=== PATIENT | female | born 1940 | race Caucasian/White ===

== ENCOUNTER → 2016-07-02 | Outpatient (CLI) | payer MEDICARE, BC ==
[~2016-07-02] MED LIST: ASPIRIN EC81 M1 PO; AZITHROMYCIN250 MG PO; CALTRATE 600+D PO; FIORICET1 TAB PO; FISH OIL 1,2001 EAC1 PO; FLONASE16 GM; GLUCOSAMINE DA1 EACH PO; HYZAAR PO; LETROZOLE2.5 MG PO; PRAVASTATIN SOD20 MG PO; TUMERIC PO
--- NOTE | ~2016-07-02 | CR172 ---
[facility] A Service of [facility] & [facility] RADIOLOGY TEXT RESULTS PATIENT: ALVA CASTLE LOCATION: [facility] : 41 UNIT #: [id number] AGE: [address]: Juliocesar Hudson MD SEX: F ORDER DR: [id number] [facility] [address] [place], [place] [address] [id number] O MR#: [id number] Acc #: [id number] NAME: ALVA CASTLE : 1940 SEX: F STUDY DATE/TIME: 07/02/2016 14:24 UNIT: [facility] ROOM: STUDY DESCRIPTION: CR Knee 3 Views Lt Attending Physician: Juliocesar Hudson M.D. Referring Physician: Juliocesar Hudson M.D. Ordering Physician: Juliocesar Hudson M.D. Primary Care Physician: Pranav Lobato M.D. MEDICAL IMAGING REPORT This report is preliminary unless electronic signature is present EXAM Left knee 3 views 07/02/2016 INDICATION 75-year-old female for preop evaluation of total left knee replacement. Shortness of air with activity. Breast cancer. Left knee pain. Pain symptoms today. TECHNIQUE 3 views left knee with weightbearing were performed. No comparisons. FINDINGS There is advanced degenerative change in the medial compartment with a bone on bone appearance. Osteophytic change is present in all 3 compartments with mild joint space narrowing in the patellofemoral compartment. There is a varus deformity of the left knee. There is spurring of the tibial spines. No distinct joint effusion. Osteophytic change is present in the patellofemoral compartment as well. IMPRESSION 1. Tricompartmental degenerative changes and varus deformity of the left knee. The degenerative change is most severe in the medial compartment. 2. Equivocal small joint effusion. Dictated by... Antonio Hernandez M.D. THIS IS AN ELECTRONICALLY VERIFIED REPORT Antonio Hernandez M.D. at 07/03/2016 4:45 PM KENDY/marybeth TD: 07/03/2016 08:07 [facility] A Service of [facility] & [facility] / [facility] RADIOLOGY TEXT RESULTS PATIENT: ALVA CASTLE LOCATION: [facility] : 41 UNIT #: [id number] AGE: [address]: Juliocesar Hudson MD SEX: F ORDER DR: JOB #: [id number] MEDICAL IMAGING REPORT Page 1 of 1 COPY
--- NOTE | ~2016-07-02 | CR63 ---
[facility] A Service of [facility] & [facility] RADIOLOGY TEXT RESULTS PATIENT: ALVA CASTLE LOCATION: [facility] : 41 UNIT #: [id number] AGE: [address]: Juliocesar Hudson MD SEX: F ORDER DR: [id number] [facility] [address] [place], [place] [address] [id number] O MR#: [id number] Acc #: [id number] NAME: ALVA CASTLE. : 1940 SEX: F STUDY DATE/TIME: 07/02/2016 14:24 UNIT: [facility] ROOM: STUDY DESCRIPTION: CR Chest 2 View Attending Physician: Juliocesar Hudson M.D. Referring Physician: Juliocesar Hudson M.D. Ordering Physician: Juliocesar Hudson M.D. Primary Care Physician: Pranav Lobato M.D. MEDICAL IMAGING REPORT This report is preliminary unless electronic signature is present EXAM Chest, 07/02/2016. [facility] HISTORY Preop left total knee arthroplasty. Osteoarthritis left knee. COMPARISON Chest 06/03/2012; CT chest, abdomen angio 03/06/2005. FINDINGS Two-view chest again demonstrates dextrocardia with known situs inversus. Heart size is slightly prominent but stable. Bilateral lungs are expanded and clear. IMPRESSION Stable negative chest with borderline stable cardiac enlargement. Congenital dextrocardia with situs inversus. Dictated by... Nicola Garcia M.D. THIS IS AN ELECTRONICALLY VERIFIED REPORT Nicola Garcia M.D. at 07/03/2016 8:10 AM ALIA/ritchie TD: 07/02/2016 21:37 JOB #: [id number] MEDICAL IMAGING REPORT Page 1 of 1 COPY
[2016-07-02 12:08] LABS: HEMATOCRIT 38.5 % (35.0-45.0); HEMOGLOBIN 12.3 gm/dL (12.0-16.0); MEAN CELL VOLUME 91.6 FL (83-96); MEAN CORPUSCULAR HEMOGLOBIN 29.3 PG (28-34); RED BLOOD COUNT 4.2 X10e (3.90-5.30); RED CELL DISTRIBUTION WIDTH 13.6 % (11.0-15.5); WHITE BLOOD COUNT 6.7 X10e3 (4.0-10.5)
[2016-07-02 12:10] LABS: URINE APPEARANCE CLEAR; URINE BILIRUBIN NEG (NEG); URINE BLOOD NEG (NEG); URINE COLOR YELLOW; URINE GLUCOSE NEG (NEG); URINE KETONE NEG (NEG); URINE LEUKOCYTE ESTERASE 1+ (NEG); URINE NITRATE NEG (NEG); URINE PH 5.5 (5-8); URINE PROTEIN NEG (NEG); URINE SPECIFIC GRAVITY 1.014 (1.003-1.035); URINE UROBILINOGEN 0.2 MG/DL (NEG)
[2016-07-02 12:12] LABS: CULTURE INDICATED? NO; URBCS1 AUWI 0-2 /[HPF] (0-2); URINE BACTERIA AUWI NEG (NEGATIVE); URINE SQUAMOUS EPITHELIAL CELL NONE SEEN /[HPF]
[2016-07-02 12:19] LABS: INR 1.1; PROTHROMBIN TIME (PATIENT) 11.4 SECONDS (9.6-11.5)
[2016-07-02 12:45] LABS: BUN/CREATININE RATIO 31.25; CREATININE SERUM 0.8 mg/dL (0.6-1.4); GLOM FILT RATE Estimated 72.7 mL/min (>60)
== END | disposition home or self-care (01) ==
LOC: CAMB 11:23
PROVIDERS: Orthopaedic Surgery
DX: Z01.818 Encounter for other preprocedural examination (principal); M17.12 Unilateral primary osteoarthritis, left knee; M21.162 Varus deformity, not elsewhere classified, left knee; I51.7 Cardiomegaly; Z88.0 Allergy status to penicillin
CPT/HCPCS: 36415; 71020; 73562; 80048; 81003; 85027; 85610; 86850; 86900; 86901; 87070

== ENCOUNTER → 2016-07-11 | Outpatient (CLI) | payer MEDICARE, BC ==
--- NOTE | ~2016-07-11 | MY11 ---
[facility] A Service of [facility] RADIOLOGY TEXT RESULTS PATIENT: ALVA CASTLE LOCATION: [facility] : 41 UNIT #: [id number] AGE: [address]: Armando Allison MD SEX: F ORDER DR: [id number] [place] [id number] [facility] [place], [place] [address] [id number] O MR#: [id number] Acc #: [id number] NAME: ALVA CASTLE. : 1940 SEX: F STUDY DATE/TIME: 07/11/2016 10:21 UNIT: [facility] ROOM: STUDY DESCRIPTION: MY Mammogram Screening Dig Davey Attending Physician: Armando Allison M.D. Referring Physician: Armando Allison M.D. Ordering Physician: Armando Allison M.D. Primary Care Physician: Pranav Lobato M.D. MEDICAL IMAGING REPORT This report is preliminary unless electronic signature is present EXAM Screening mammogram HISTORY A 75-year-old with personal and family history of breast cancer. No current complaints. FINDINGS Routine digital screening views of both breasts were obtained. The study is reviewed with an FDA approved CAD device. COMPARISON STUDIES 07/11/15, 04/07/14. FINDINGS Breast parenchyma shows a few scattered fibroglandular densities. No new masses or suspicious microcalcifications are seen. Benign lymph nodes in both axillary tails are stable. Left lumpectomy bed is also stable. IMPRESSION Benign mammogram. Followup in 1 year recommended. Patients over the age of 40 are entered into a reminder system with target due date for the next mammogram. A result letter will also be sent to the patient. BIRADS: 2 Benign Finding Dictated by... [facility] A Service [facility] RADIOLOGY TEXT RESULTS PATIENT: ALVA CASTLE LOCATION: [facility] : 41 UNIT #: [id number] AGE: [address]: Armando Allison MD SEX: F ORDER DR: Donta Joseph Jr., M.D. THIS IS AN ELECTRONICALLY VERIFIED REPORT Donta Joseph Jr., M.D. at 07/12/2016 6:08 AM CHRISTOPH/atif TD: 07/11/2016 13:58 JOB #: [id number] MEDICAL IMAGING REPORT Page 1 of 1 COPY
== END | disposition home or self-care (01) ==
LOC: CWCC 09:58
DX: Z12.31 Encounter for screening mammogram for malignant neoplasm of breast (principal); Z80.3 Family history of malignant neoplasm of breast
CPT/HCPCS: G0202

== ENCOUNTER 2016-07-16 06:53 | Inpatient (IN) | payer MEDICARE, BC ==
--- NOTE | ~2016-07-16 | CR169 ---
[facility] A Service of [facility] & [facility] RADIOLOGY TEXT RESULTS PATIENT: ALVA CASTLE LOCATION: [facility]- : 41 UNIT #: [id number] AGE: [address]: Juliocesar Hudson MD SEX: F ORDER DR: [id number] [facility] [address] [place], [place] [address] [id number] I MR#: [id number] Acc #: [id number] NAME: ALVA CASTLE. : 1940 SEX: F STUDY DATE/TIME: 07/16/2016 10:41 UNIT: [facility] ROOM: [facility] STUDY DESCRIPTION: CR Knee 2 Views Lt Attending Physician: Juliocesar Hudson M.D. Referring Physician: Juliocesar Hudson M.D. Ordering Physician: Juliocesar Hudson M.D. Primary Care Physician: Pranav Lobato M.D. MEDICAL IMAGING REPORT This report is preliminary unless electronic signature is present EXAM Left knee 2 views 07/16/2016 10:41 hours HISTORY Knee pain, postop total knee replacement today. COMPARISON 07/02/2016 FINDINGS AP and cross-table lateral views demonstrate interval total knee replacement with anatomic alignment. No fracture seen. IMPRESSION Interval total knee replacement with anatomic alignment. No fracture. No surgical drains seen. Dictated by... Estephanie Wellington M.D. THIS IS AN ELECTRONICALLY VERIFIED REPORT Estephanie Wellington M.D. at 07/17/2016 9:30 AM Phoebe TD: 07/16/2016 15:03 JOB #: [id number] MEDICAL IMAGING REPORT Page 1 of 1 COPY
--- NOTE | ~2016-07-16 | DS ---
Unit #: [id number] #: [id number] Patient: ALVA CASTLE [id number] [address] [place], [place] [address] [id number] I MR#: [id number] NAME: ALVA CASTLE. ROOM: [facility] Age: 75 Sex: F Admission Date: 07/16/2016 : 1940 Discharge Date: 07/19/2016 Attending Physician: Juliocesar Hudson M.D. Referring Physician: Juliocesar Hudson M.D. Primary Care Physician: Pranav Lobato M.D. DISCHARGE SUMMARY DISCHARGE DIAGNOSIS Left knee osteoarthritis, status post total knee arthroplasty. DISCHARGE MEDICATIONS Patient will start all of her home medications in addition to: 1. Faber 10/325 mg 1/2-1 tablet p.o. q.3 hours p.r.n. pain. 2. She will also be changed from aspirin 81 mg to aspirin 325 mg p.o. every day for 6 weeks. 3. She will also be on Senokot S. 4. She will hold her tumeric and fish oil. DETAILS OF HOSPITAL STAY Patient had a total knee arthroplasty that was uneventful on 07/16/2016. She did well with physical therapy. Labs and vital signs are stable. On 07/19/2016, she was stable for discharge. DISPOSITION Signature Bells. DISCHARGE INSTRUCTIONS 1. Patient will continue physical therapy. She will use a walker and can transition to a cane when tolerated. 2. She will ice and elevate the knee. 3. She will take aspirin daily, full dose, for 6 weeks for DVT prophylaxis. 4. She can remove the dressing after 7 days or leave on until she follows up in the office. 5. Call the office with any questions or concerns regarding her care. Dictated by... Juliocesar Hudson M.D. KEO/tommy TD: 07/19/2016 08:50 JOB #: [id number] Unit #: [id number] #: [id number] Patient: ALVA CASTLE DISCHARGE SUMMARY Page 1 of 1 X X DISCHARGE SUMMARY
--- NOTE | ~2016-07-16 | OR ---
Unit #: [id number] #: [id number] Patient: ALVA COSME [id number] [address] [address] [id number] I MR#: [id number] NAME: ALVA COSME. ROOM: [facility] Date of Procedure: 07/16/2016 Admission Date: 07/16/2016 Surgeon: Juliocesar Hudson M.D. : 1940 Attending Physician: Juliocesar Hudson M.D. Referring Physician: Juliocesar Hudson M.D. Primary Care Physician: Pranav Lobato M.D. OPERATIVE REPORT PREOPERATIVE DIAGNOSIS Left knee osteoarthritis. POSTOPERATIVE DIAGNOSE Left knee osteoarthritis. PROCEDURE PERFORMED Left total knee arthroplasty. OPINION POLLS SURVEY WORKER Loyd Connell CFA. ANESTHESIA General with LMA. COMPLICATIONS None. SPECIMENS None. DRAINS None. SURGICAL IMPLANTS 1. Alex Persona total knee arthroplasty System size 7 PS femur. 2. Size D tibial tray. 3. 32 mm patella button. 4. 13 mm polyethylene insert. INDICATION FOR PROCEDURE Ms. Cosme is a pleasant 75-year-old female with end-stage left knee osteoarthritis. The patient failed to respond to conservative treatment including anti-inflammatories, cortisone injections, therapy. The patient wished to proceed with left total knee arthroplasty. Risks, benefits, and alternatives of the surgery were discussed with the patient. Informed consent was obtained. Risks include, but not limited to, infection, bleeding, nerve injury, blood clots, risks associated with anesthesia, need for further surgery, persistent pain, and possibly . DESCRIPTION OF PROCEDURE On 07/16/2016, the patient was seen in the preoperative holding area, Unit #: [id number] #: [id number] Patient: ALVA COSME where her surgical site was marked. Preoperative antibiotics were received. H and P and consent updated. Preoperative block performed. She was taken to the operating room and provided general anesthesia. Left leg tourniquet placed at the thigh. It was then prepped and draped in typical sterile fashion. Time-out performed confirming the correct surgical site and procedure. Esmarch was used to exsanguinate the leg. Tourniquet inflated to 250 mmHg. A longitudinal incision was made over the anterior aspect of the knee for standard anterior approach of total knee arthroplasty. Medial parapatellar arthrotomy performed. Fat pad excised. Retractors were placed and the knee was flexed up. Starting drill was placed into the femur followed by the chacorta. +11 was cut for the distal femoral cut. This was 5 degrees left valgus. Next, the anterior referencing guide was used. A size 7 3-degree externally rotated pin holes were placed. The 4:1 cutting jig was placed. Four cuts were made carefully. The tibial guide was then placed. Careful attention to height, slope, and varus valgus noted. The 4 mm was referenced off the medial side. The cut was made. The sizing blocks were used and noted to be stable. At this point, the periarticular joint injection was injected all around the knee joint. The tibia was then sized at a size D. It was pinned in place. The femur was placed. Two lug holes drilled. The PS cut was made. A 10 mm poly was placed. It was up to 13 mm and noted to be stable in flexion and extension with full motion. At this point, the patella had been sized and cut and 3 lug holes made for the 32 mm patellar button. The patella tracked midline. Instruments were removed. Tibia had been drilled and punched. Excess bone removed. Knee thoroughly irrigated with normal saline containing bacitracin. The cement was mixed on the back table. This was Palacos R+G. Tibia, femur, and patella were placed. Excess cement removed. A 13 mm insert placed. After approximately 12 minutes, the cement had hardened. The final 13 mm insert was placed. The patient had full motion with appropriate stability. Tourniquet was released at 62 minutes. The patient had received tranexamic acid. Hemostasis was achieved. The remainder of 3 L normal saline containing bacitracin pulsed through the wound. Arthrotomy closed with #1 Vicryl suture followed by 2-0 Vicryl for subcutaneous tissues and 3-0 Monocryl subcuticular skin stitch. Dermabond, Telfa, and Tegaderm were placed. Jose Luis bandage was placed. The patient was subsequently awakened from general anesthesia in stable condition and taken to PACU postoperatively. POSTOPERATIVE PLAN The patient will be weightbearing as tolerated. She will have standard 24-hour antibiotic protocol. She will be on Lovenox while in the hospital and transitioned to full dose aspirin daily upon discharge. She will have MATA hose and SCDs. No complications encountered during the surgical procedure. Dictated by... Renetta Carroll/cristian TD: 07/17/2016 02:58 JOB #: [id number] Unit #: [id number] #: [id number] Patient: ALVA COSME OPERATIVE REPORT Page 1 of 1 X X PROCEDURE OPERATIVE NOTE
--- NOTE | ~2016-07-16 | EKG ---
PATIENT: ALVA CASTLE UNIT #: [id number] Ventricular Rate: 75 BPM Atrial Rate: 75 BPM P-R Interval: 162 ms QRS Duration: 92 ms Q-T Interval: 404 ms QTC Calculation(Bezet): 451 ms P Sterrett: 122 degrees Calculated R Sterrett: 72 degrees Calculated T Sterrett: 97 degrees Diagnosis Line: Sinus rhythm Diagnosis Line: niormal ecg Diagnosis Line: No previous ECGs available Diagnosis Line: Confirmed by JAMAR JACK MD ([id number]) on Diagnosis Line: 07/16/2016 10:18:12 PM INTERPRETING MD: SAWYER
[2016-07-17 03:28] LABS: BASOPHIL% 0.1 % (0-2.5); HEMATOCRIT 32.5 % (35.0-45.0); HEMOGLOBIN 10.6 gm/dL (12.0-16.0); LYMPHOCYTE% 7.3 % (17.0-45.0); MEAN CELL VOLUME 90.9 FL (83-96); MEAN CORPUSCULAR HEMOGLOBIN 29.7 PG (28-34); MEAN CORPUSCULAR HGB CONC 32.7 g/dL (30-36); MEAN PLATELET VOLUME 12.3 FL (6.5-11.5); MONOCYTE# 0.4 X10e3 (0-1.0); NEUTROPHIL# 11.7 X10e3 (1.5-7.1); NEUTROPHIL% 89.6 % (40-75); PLATELET COUNT 165 X10e3 (140-420); RED BLOOD COUNT 3.58 X10e (3.90-5.30); RED CELL DISTRIBUTION WIDTH 13.7 % (11.0-15.5); WHITE BLOOD COUNT 13.1 X10e3 (4.0-10.5)
[2016-07-17 03:29] LABS: DIFF IND NO
[2016-07-17 03:52] LABS: BUN/CREATININE RATIO 25.55; CALCIUM SERUM 8.8 mg/dL (8.4-10.2); CREATININE SERUM 0.9 mg/dL (0.6-1.4); POTASSIUM 4.2 mmol/L (3.5-5.1)
[2016-07-18 03:52] LABS: BASOPHIL% 0.4 % (0-2.5); EOSINOPHIL# 0.2 X10e3 (0-0.7); EOSINOPHIL% 2.1 % (0.0-7.0); HEMATOCRIT 28.5 % (35.0-45.0); HEMOGLOBIN 9.4 gm/dL (12.0-16.0); LYMPHOCYTE# 2.8 X10e3 (1.0-3.5); LYMPHOCYTE% 26.5 % (17.0-45.0); MEAN CELL VOLUME 90.6 FL (83-96); MEAN CORPUSCULAR HEMOGLOBIN 29.9 PG (28-34); MEAN PLATELET VOLUME 11.8 FL (6.5-11.5); MONOCYTE# 0.7 X10e3 (0-1.0); MONOCYTE% 6.5 % (3.0-12.0); NEUTROPHIL# 6.8 X10e3 (1.5-7.1); NEUTROPHIL% 64.5 % (40-75); PLATELET COUNT 133 X10e3 (140-420); RED BLOOD COUNT 3.15 X10e (3.90-5.30); RED CELL DISTRIBUTION WIDTH 13.7 % (11.0-15.5); WHITE BLOOD COUNT 10.6 X10e3 (4.0-10.5)
[2016-07-18 03:55] LABS: DIFF IND NO
[2016-07-18 04:17] LABS: BUN/CREATININE RATIO 31.11; CALCIUM SERUM 8.7 mg/dL (8.4-10.2); CREATININE SERUM 0.9 mg/dL (0.6-1.4); POTASSIUM 4.4 mmol/L (3.5-5.1)
[2016-07-19 04:31] LABS: BASOPHIL% 0.4 % (0-2.5); DIFF IND NO; EOSINOPHIL# 0.2 X10e3 (0-0.7); EOSINOPHIL% 2.2 % (0.0-7.0); HEMOGLOBIN 9.5 gm/dL (12.0-16.0); LYMPHOCYTE% 25.1 % (17.0-45.0); MEAN CELL VOLUME 91.3 FL (83-96); MEAN CORPUSCULAR HEMOGLOBIN 29.8 PG (28-34); MEAN CORPUSCULAR HGB CONC 32.6 g/dL (30-36); MONOCYTE# 0.6 X10e3 (0-1.0); MONOCYTE% 8.1 % (3.0-12.0); NEUTROPHIL# 5.1 X10e3 (1.5-7.1); NEUTROPHIL% 64.2 % (40-75); PLATELET COUNT 134 X10e3 (140-420); RED BLOOD COUNT 3.18 X10e (3.90-5.30); WHITE BLOOD COUNT 7.9 X10e3 (4.0-10.5)
[2016-07-19 04:48] LABS: CALCIUM SERUM 8.4 mg/dL (8.4-10.2); GLOM FILT RATE Estimated 55.5 mL/min (>60); POTASSIUM 4.1 mmol/L (3.5-5.1)
== END 2016-07-19 11:48 | DRG 470 ==
LOC: CSUR 06:53 → CPACUOF 09:06 → CSUR 09:06 → CPACUOF 10:15 → C4B 10:15 → CPACUOF 12:10 → C4B 12:10
PROVIDERS: Orthopaedic Surgery
PROC: 0SRD0J9 Replacement of Left Knee Joint with Synthetic Substitute, Cemented, Open Approach (ICD-10-PCS; principal; 2016-07-16 08:30)
DX: M17.12 Unilateral primary osteoarthritis, left knee (principal); I10 Essential (primary) hypertension; K57.90 Diverticulosis of intestine, part unspecified, without perforation or abscess without bleeding; E66.9 Obesity, unspecified; M17.0 Bilateral primary osteoarthritis of knee; Z85.3 Personal history of malignant neoplasm of breast
CPT/HCPCS: 73560; 80048; 85025; 93005; 94010; 94760; 97110; 97116; 97161; C1776; G8978-GP; G8979-GP; J0131; J0171; J0735; J1100; J1650; J1885; J2250; J2405; J2795; J3010; J3370